=== PATIENT | female | born 1945 | race Caucasian/White ===

== ENCOUNTER 2021-01-12 15:35 | Emergency (ER) | payer OTHER ==
[~2021-01-12] VITALS: Ht 157.5 cm; Wt 52.6 kg
[2021-01-12] MEDS ORDERED: EZETIMIBE10 MG (16:25)
[2021-01-12] MEDS ORDERED: [UNRECOGNIZED DRUG - OTHER] (16:25)
[2021-01-12] MEDS ORDERED: XARELTO20 MG (16:25)
[2021-01-12] MEDS ORDERED: [UNRECOGNIZED DRUG - OTHER] (16:25)
[2021-01-12] MEDS ORDERED: ALDACTONE25 MG (16:26)
[2021-01-12] MEDS ORDERED: ESCITALOPRAM (16:26)
[2021-01-12] MEDS ORDERED: IRBESARTAN (16:26)
[2021-01-12] MEDS ORDERED: OMEPRAZOLE MAGN20 MG (16:26)
== END 2021-01-12 19:18 | disposition home or self-care (01) ==
LOC: ER 15:35
DX: S80.01XA Contusion of right knee, initial encounter (principal); S80.02XA Contusion of left knee, initial encounter; M12.561 Traumatic arthropathy, right knee; M12.562 Traumatic arthropathy, left knee; W18.09XA Striking against other object with subsequent fall, initial encounter; Y93.89 Activity, other specified; Y92.89 Other specified places as the place of occurrence of the external cause; Y99.8 Other external cause status